=== PATIENT | male | born 1965 | race Caucasian/White ===

== ENCOUNTER 2020-03-10 18:26 | Emergency (ER) | payer OTHER ==
[~2020-03-10] VITALS: Ht 187 cm; Wt 105.0 kg
--- NOTE | 2020-03-10 18:40 | ED Upper Extremity ---
General Chief Complaint: Upper Extremity Stated Complaint: R HAND INJ / LAC Source: patient Exam Limitations: no limitations History of Present Illness Date Seen by Provider: Mar 10, 2020 Time Seen by Provider: 18:36 Initial Comments To ER per private vehicle with reports of right middle finger crush injury. He works for [employer], is from [place]. He got his middle finger cut between 2 metal shelves. Unknown last tetanus vaccine date. Onset: just prior to arrival Severity: moderate Pain/Injury Location: right 3rd finger Method of Injury: direct blow Modifying Factors: Worse With Movement Allergies and Home Medications Allergies Coded Allergies: amoxicillin (Verified Allergy, Unknown, 03/10/20) codeine (Verified Allergy, Unknown, 03/10/20) Home Medications Aspirin 81 Mg Tab.chew, 81 MG PO DAILY, (Reported) Atorvastatin Calcium 10 Mg Tablet, 10 MG PO HS, (Reported) Omeprazole 40 Mg Capsule.dr, 40 MG PO DAILY, (Reported) Patient Home Medication List Home Medication List Reviewed: Yes Review of Systems Constitutional: see HPI EENTM: see HPI Respiratory: no symptoms reported Cardiovascular: no symptoms reported Genitourinary: no symptoms reported Musculoskeletal: no symptoms reported Skin: no symptoms reported Psychiatric/Neurological: No Symptoms Reported Past Fjzkwjv-Yidywj-Naefxw Hx Patient Social History Recent Foreign Travel: No Contact w/Someone Who Travel: No Physical Exam Vital Signs Vital Signs - First Documented 03/10/20 18:30 Temp 36.8 Pulse 100 Resp 14 B/P (MAP) 127/76 (93) Pulse Ox 97 O2 Delivery Room Air Capillary Refill : Height, Weight, BMI Height: '" Weight: lbs. oz. kg; BMI Method: General Appearance: WD/WN, no apparent distress Respiratory: no respiratory distress, no accessory muscle use Shoulder: normal inspection, non-tender Elbow/Forearm: normal inspection, non-tender Wrist: Yes normal inspection, Yes non-tender Hand: Right Procedures/Interventions Wound Location: Upper Extremities Wound Length (cm): 1 Wound's Depth, Shape: irregular, nail-avulsed Wound Explored: clean Irrigated w/ Saline (ccs): 50 Anesthesia: 1% Lidocaine Volume Anesthetic (ccs): 5 Suture: Prolene, Monocryl Suture Size: 5-0 Number of Sutures: 8 Layer Closure?: 1 Number Deep Layer Sutures: 0 There is a nail avulsion with nail bed laceration. The nail was removed the rest of the way as it was attached only by about a 2 or 3 mm segment of skin. The underlying nailbed had about a 1 cm irregular laceration which was closed with 5-0 Monocryl sutures simple interrupted 3 and then Dermabond. The tip of the p ad of the finger was closed with 3 simple interrupted sutures size 5-0 Prolene. The proximal nail fold was splinted opened using the foil from the Vicryl suture package using 2 simple interrupted sutures size 5-0 Prolene. He was then wrapped with nonadherent gauze and tube gauze. Progress/Results/Core Measures Results/Orders My Orders Orders - MAHOGANY WILKINS APRN Alprazolam Tablet (Xanax Tablet) (03/10/20 18:45) Dipht,Pertuss(Acell),Tet Adult (Boostrix (03/10/20 18:45) Rx-Hydrocodone/Apap 5-325 Mg (Rx-Vicodin (03/10/20 18:45) Hand, Right, 3 Views (03/10/20 18:35) Cephalexin Capsule (Keflex Capsule) (03/10/20 19:45) Medications Given in ED Current Medications Medications Dose Ordered Sig/Millie Route Start Time Stop Time Status Last Admin Dose Admin Acetaminophen/ Hydrocodone Bitart 1 ea Q4H PRN PO 03/10/20 18:45 03/10/20 19:00 1 EA Alprazolam 0.5 mg ONCE ONCE PO 03/10/20 18:45 03/10/20 18:46 DC 03/10/20 18:49 0.5 MG Diphtheria/ Tetanus/Acell Pertussis 0.5 ml ONCE ONCE IM 03/10/20 18:45 03/10/20 18:46 DC 03/10/20 18:50 0.5 ML Vital Signs/I&O 03/10/20 18:30 Temp 36.8 Pulse 100 Resp 14 B/P (MAP) 127/76 (93) Pulse Ox 97 O2 Delivery Room Air Departure Impression Primary Impression: Crush injury to finger Qualified Codes: S67.10XA - Crushing injury of unspecified finger(s), i nitial encounter Additional Impressions: Fingernail avulsion Qualified Codes: S61.309A - Unspecified open wound of unspecified finger with damage to nail, initial encounter Laceration of nail bed of finger Qualified Codes: S61.319A - Laceration without foreign body of unspecified finger with damage to nail, initial encounter Disposition: 01 HOME, SELF-CARE Condition: Stable Departure-Patient Inst. Decision time for Depature: 19:36 Referrals: NO,LOCAL PHYSICIAN (PCP/Family) Primary Care Physician Patient Instructions: Common Finger Injuries, Nail Avulsion Add. Discharge Instructions: 1. You may remove the big bulky dressing in about 48 hours, Saturday evening by simply pulling on it. If it is stuck because of blood to the underlying skin then simply soak it in some lukewarm water under the sink which will allow it to peel off more easily. Be very gentle. The 3 stitches on the tip of the finger as well as the 2 stitches holding the finger nail splint in place should be removed in 10 days, return to the emergency room to have this done. Take the antibiotics as directed, take the pain medication as directed. Do Your best not to mix this with the Ambien. Once you remove the finger dressing on Saturday and you can wrap this with just a plain Band-Aid and apply the splint for some added protection of the fingertip. Return to ER for any concerns in the meantime such as intolerable pain, fevers, redness. All discharge instructions reviewed with patient and/or family. Voiced understanding. Scripts Cephalexin (Keflex) 500 Mg Capsule 500 MG PO TID, #15 CAP Prov: MAHOGANY WILKINS APRN 03/10/20 MAHOGANY WILKINS APRN Mar 10, 2020 18:40
[2020-03-10] MEDS ORDERED: RX-HYDROCODONE/APAP 5/325 MG #4 TAB PK PO PRN (18:45)
[2020-03-10] MEDS ORDERED: TETANUS,DIPTH,PERTUSS P/F (BOOSTRIX) 0.5 ML VIAL IM ONE (18:45)
[2020-03-10] MEDS ORDERED: ALPRAZolam 0.25 MG (XANAX) TAB PO ONE (18:45)
--- NOTE | 2020-03-10 19:11 | Diagnostic Imaging Report ---
INDICATION: Right hand injury 3 views of the right hand show some soft tissue disruption of the tip of the distal right middle finger. There appears to be some cortical fracture of the tuft. IMPRESSION: Compound fracture of the tuft of the distal phalanx of the right middle finger involving the cortical tip. Dictated by: Dictated on workstation # [id number]
[2020-03-10] MEDS ORDERED: ZOLP10TA PO (19:30)
[2020-03-10] MEDS ORDERED: TEST1.252 TD (19:30)
[2020-03-10] MEDS ORDERED: OMEP40CA27 PO (19:30)
[2020-03-10] MEDS ORDERED: ASPI-999 PO (19:30)
[2020-03-10] MEDS ORDERED: ATOR10TA PO (19:30)
--- NOTE | 2020-03-10 19:31 | NUR ---
Report given to Kareem MENDEZ.
[2020-03-10] MEDS ORDERED: HYDR-3870 PO (19:39)
[2020-03-10] MEDS ORDERED: CEPH-507 PO (19:39)
[2020-03-10] MEDS ORDERED: CEPHALEXIN 250 MG (KEFLEX) CAP PO ONE (19:45)
[2020-03-10 19:51] VITALS: BP 125/71
--- OUTSIDE RECORDS SUMMARY | 2020-03-10 21:11 | XMS REPORT | Continuity of Care Document ---
Demographics Preferred Language Unknown Marital Status Unknown Jewish Affiliation Unknown Race Unknown Ethnic Group Unknown Author Organization Unknown Address Unknown Phone Unavailable Allergies There is no data. Medications There is no data. Problems There is no data. Procedures There is no data. Results There is no data. Encounters There is no data.
== END 2020-03-10 19:51 | disposition home or self-care (01) ==
LOC: ER 18:28
DX: S67.192A Crushing injury of right middle finger, initial encounter (principal); S61.312A Laceration without foreign body of right middle finger with damage to nail, initial encounter; Z79.82 Long term (current) use of aspirin; Z88.0 Allergy status to penicillin; Z88.5 Allergy status to narcotic agent; Z23 Encounter for immunization; W23.1XXA Caught, crushed, jammed, or pinched between stationary objects, initial encounter; Y92.59 Other trade areas as the place of occurrence of the external cause
CPT/HCPCS: 12011; 73130; 90715

== ENCOUNTER 2020-03-13 08:42 | Emergency (ER) | payer OTHER ==
[~2020-03-13] VITALS: Ht 182 cm; Wt 105.0 kg
[~2020-03-13 08:42] MED LIST: ASPI-999 PO; ATOR10TA PO; CEPH-507 PO; HYDR-3870 PO; OMEP40CA27 PO; TEST1.252 TD; ZOLP10TA PO
--- OUTSIDE RECORDS SUMMARY | 2020-03-13 08:47 | XMS REPORT | Continuity of Care Document ---
Author Organization Unknown Address Unknown Phone Unavailable Allergies There is no data. Medications There is no data. Problems There is no data. Procedures There is no data. Results There is no data. Encounters ACCT No. Visit Date/Time Discharge Status Pt. Type Provider Facility Loc./Unit Complaint [id number] 03/10/2020 18:28:00 020 19:51:00 DIS Emergency MAHOGANY WILKINS APRN Via [facility] ER R HAND INJ / LAC
[2020-03-13 09:15] VITALS: BP 132/84
== END 2020-03-13 09:17 | disposition home or self-care (01) ==
LOC: EDUNIT# 08:42 → ER 08:43
DX: S61.203D Unspecified open wound of left middle finger without damage to nail, subsequent encounter (principal); X58.XXXD Exposure to other specified factors, subsequent encounter

== ENCOUNTER 2020-03-17 22:30 | Emergency (ER) | payer OTHER ==
[~2020-03-17] VITALS: Ht 187 cm; Wt 105.0 kg
[2020-03-17 22:55] VITALS: BP 165/98
--- OUTSIDE RECORDS SUMMARY | 2020-03-18 00:23 | XMS REPORT | Continuity of Care Document ---
Author Organization Unknown Address Unknown Phone Unavailable Allergies Active Description Code Type Severity Reaction Onset Reported/Identified Relationship to Patient Clinical Status Yes amoxicillin [id number] Drug Aller gy Unknown N/A 03/10/2020 Yes codeine [id number] Drug Allergy Unknown N/A 03/10/2020 Medications There is no data. Problems Date Dx Coded Attending Type Code Diagnosis Diagnosed By 03/14/2020 MAHOGANY WILKINS APRN Ot M79.642 PAIN IN LEFT HAND 03/14/2020 MAHOGANY WILKINS APRN Ot S61.312A LACERATION W/O FB OF R MID FINGER W SANDIP 03/14/2020 MAHOGANY WILKINS APRN Ot S67.192A CRUSHING INJURY OF RIGHT MIDDLE FINGER, 03/14/2020 MAHOGANY WILKINS APRN Ot W23.1XXA CAUGHT, CRUSH, JAMMED, OR PINCHED BETW S 03/14/2020 MAHOGANY WILKINS APRN Ot Y92.[address] 03/14/2020 MAHOGANY WILKINS APRN Ot Z23 ENCOUNTER FOR IMMUNIZATION 03/14/2020 MAHOGANY WILKINS APRN Ot Z79.82 HALFWAY (CURRENT) USE OF ASPIRIN 03/14/2020 MAHOGANY WILKINS APRN Ot Z88 .0 ALLERGY STATUS TO PENICILLIN 03/14/2020 MAHOGANY WILKINS APRN Ot Z88 .5 ALLERGY STATUS TO NARCOTIC AGENT STATUS Procedures There is no data. Results There is no data. Encounters ACCT No. Visit Date/Time Discharge Status Pt. Type Provider Facility Loc./Unit Complaint [id number] 03/13/2020 08:43:00 020 09:17:00 DIS Emergency JANES FRANKLIN, NASIMA Tee Via [facility] ER WOULD CHECK - R MIDDLE FINGER [id number] 03/10/2020 18:28:00 020 19:51:00 DIS Outpatient MAHOGANY WILKINS APRN Via [facility] ER R HAND INJ / LAC
== END 2020-03-17 22:57 | disposition home or self-care (01) ==
LOC: EDUNIT# 22:30 → ER 22:31
DX: S61.209D Unspecified open wound of unspecified finger without damage to nail, subsequent encounter (principal); X58.XXXD Exposure to other specified factors, subsequent encounter
CPT/HCPCS: 99282

== ENCOUNTER 2020-03-21 08:21 | Emergency (ER) | payer OTHER ==
--- OUTSIDE RECORDS SUMMARY | 2020-03-21 09:07 | XMS REPORT | Continuity of Care Document ---
Author Organization Unknown Address Unknown Phone Unavailable Allergies Active Description Code Type Severity Reaction Onset Reported/Identified Relationship to Patient Clinical Status Yes amoxicillin [id number] Drug Aller gy Unknown N/A 03/10/2020 Yes codeine [id number] Drug Allergy Unknown N/A 03/10/2020 Medications There [...] S 03/14/2020 MAHOGANY WILKINS APRN Ot Y92.59 [facility] 03/14/2020 MAHOGANY WILKINS APRN Ot Z23 ENCOUNTER FOR IMMUNIZATION 03/14/2020 MAHOGANY WILKINS APRN Ot Z79.82 ALF (CURRENT) USE OF ASPIRIN 03/14/2020 MAHOGANY WILKINS APRN Ot Z88 .0 ALLERGY STATUS TO PENICILLIN 03/14/2020 MAHOGANY WILKINS APRN Ot Z88 .5 ALLERGY STATUS TO NARCOTIC AGENT STATUS 03/17/2020 MAHOGANY WILKINS APRN Ot M79.642 PAIN IN LEFT HAND 03/17/2020 MAHOGANY WILKINS APRN Ot S61.312A LACERATION W/O FB OF R MID FINGER W SANDIP 03/17/2020 MAHOGANY WILKINS APRN Ot S67.192A CRUSHING INJURY OF RIGHT MIDDLE FINGER, 03/17/2020 MAHOGANY WILKINS APRN Ot W23.1XXA CAUGHT, CRUSH, JAMMED, OR PINCHED BETW S 03/17/2020 MAHOGANY WILKINS APRN Ot Y92.59 [facility] TR[facility] ARE[facility] 03/17/2020 MAHOGANY WILKINS APRN Ot Z23 ENCOUNTER FOR IMMUNIZATION 03/17/2020 MAHOGANY WILKINS APRN Ot Z79.82 ALF (CURRENT) USE OF ASPIRIN 03/17/2020 MAHOGANY WILKINS APRN Ot Z88 .0 ALLERGY STATUS TO PENICILLIN 03/17/2020 MAHOGANY WILKINS APRN Ot Z88 .5 ALLERGY STATUS TO NARCOTIC AGENT STATUS Procedures There is no data. Results There is no data. Encounters ACCT No. Visit Date/Time Discharge Status Pt. Type Provider Facility Loc./Unit Complaint [id number] 03/17/2020 22:31:00 020 22:57:00 DIS Emergency STEPAN MCCLENDON DO [facility] ER WOUND CHECK [id number] 03/13/2020 08:43:00 020 09:17:00 DIS Emergency NASIMA MARRERO MD Via [facility] ER WOULD CHECK - R MIDDLE FINGER [id number] 03/10/2020 18:28:00 020 19:51:00 DIS Outpatient MAHOGANY WILKINS APRN Via [facility] ER R HAND INJ / LAC
== END 2020-03-21 09:10 | disposition left against medical advice (07) ==
LOC: EDUNIT# 08:21 → ER 08:22
DX: Z48.02 Encounter for removal of sutures (principal)

== ENCOUNTER 2020-03-22 14:07 | Emergency (ER) | payer OTHER ==
[2020-03-22 14:44] VITALS: BP 127/72
--- OUTSIDE RECORDS SUMMARY | 2020-03-22 16:41 | XMS REPORT | Continuity of Care Document ---
Author Organization Unknown Address Unknown Phone Unavailable Allergies Active Description Code Type Severity Reaction Onset Reported/Identified Relationship to Patient Clinical Status Yes amoxicillin [id number] Drug Aller gy Unknown N/A 03/10/2020 Yes codeine [id number] Drug Allergy Unknown N/A 03/10/2020 Medications There [...] S 03/14/2020 MAHOGANY WILKINS APRN Ot Y92.59 [facility] TRADE ARE[facility] 03/14/2020 MAHOGANY WILKINS APRN Ot Z23 ENCOUNTER FOR IMMUNIZATION 03/14/2020 MAHOGANY WILKINS APRN Ot Z79.82 [facility] (CURRENT) USE OF ASPIRIN 03/14/2020 MAHOGANY WILKINS [...] S 03/17/2020 MAHOGANY WILKINS APRN Ot Y92.59 [facility] TRADE ARE[facility] 03/17/2020 MAHOGANY WILKINS APRN Ot Z23 ENCOUNTER FOR IMMUNIZATION 03/17/2020 MAHOGANY WILKINS APRN Ot Z79.82 [facility] (CURRENT) USE OF ASPIRIN 03/17/2020 MAHOGANY WILKINS APRN Ot Z88 .0 ALLERGY STATUS TO PENICILLIN 03/17/2020 MAHOGANY WILKINS APRN Ot Z88 .5 ALLERGY STATUS TO NARCOTIC AGENT STATUS 03/21/2020 STEPAN MCCLENDON DO Ot S61.209 D UNSP OPEN WOUND OF UNSP FINGER W/O DAMAG 03/21/2020 STEPAN MCCLENDON DO Ot X58.XXX D EXPOSURE TO OTHER SPECIFIED FACTORS, SUB Procedures There is no data. Results There is no data. Encounters ACCT No. Visit Date/Time Discharge Status Pt. Type Provider Facility Loc./Unit Complaint [id number] 03/21/2020 08:22:00 020 09:10:00 DIS Emergency RAYRAY FRANKLIN, JOHNY Moore Via [facility] ER STITCH REMOVAL [id number] 03/17/2020 22:31:00 020 22:57:00 DIS Outpatient [place] STEPAN SIEGEL [facility] ER WOUND CHECK [id number] 03/13/2020 08:43:00 020 09:17:00 DIS Emergency NASIMA MARRERO MD Via [facility] ER WOULD CHECK - R MIDDLE FINGER [id number] 03/10/2020 18:28:00 020 19:51:00 DIS Outpatient MAHOGANY WILKINS APRN Via [facility] ER R HAND INJ / LAC
== END 2020-03-22 15:04 | disposition home or self-care (01) ==
LOC: EDUNIT# 14:07 → ER 14:09
DX: S61.212D Laceration without foreign body of right middle finger without damage to nail, subsequent encounter (principal); X58.XXXD Exposure to other specified factors, subsequent encounter
CPT/HCPCS: 99281

== ENCOUNTER 2020-03-29 00:38 | Emergency (ER) | payer BC, OTHER ==
[~2020-03-29] VITALS: Ht 188 cm; Wt 90.7 kg
--- OUTSIDE RECORDS SUMMARY | 2020-03-29 00:45 | XMS REPORT | Continuity of Care Document ---
Author Organization Unknown Address Unknown Phone Unavailable Allergies Active Description Code Type Severity Reaction Onset Reported/Identified Relationship to Patient Clinical Status Yes amoxicillin [id number] Drug Aller gy Unknown N/A 03/10/2020 Yes codeine [id number] Drug Allergy Unknown N/A 03/10/2020 Medications There [...] S 03/14/2020 MAHOGANY WILKINS APRN Ot Y92.[address] [facility] [address] 03/14/2020 MAHOGANY WILKINS APRN Ot Z23 ENCOUNTER FOR IMMUNIZATION 03/14/2020 MAHOGANY WILKINS APRN Ot Z79.82 [facility] (CURRENT) USE OF ASPIRIN 03/14/2020 MAHOGANY WILKINS [...] S 03/17/2020 MAHOGANY WILKINS APRN Ot Y92.59 [facility] [address] 03/17/2020 MAHOGANY WILKINS APRN Ot Z23 ENCOUNTER FOR IMMUNIZATION 03/17/2020 MAHOGANY WILKINS APRN Ot Z79.82 [facility] (CURRENT) USE OF ASPIRIN 03/17/2020 MAHOGANY WILKINS APRN Ot Z88 .0 ALLERGY STATUS TO PENICILLIN 03/17/2020 MAHOGANY WILKINS APRN Ot Z88 .5 ALLERGY STATUS TO NARCOTIC AGENT STATUS 03/21/2020 STEPAN MCCLENDON DO Ot S61.209 D UNSP OPEN WOUND OF UNSP FINGER W/O DAMAG 03/21/2020 [facility] STEPAN SIEGEL Ot X58.XXX D EXPOSURE TO OTHER SPECIFIED FACTORS, SUB 03/24/2020 RAYRAY FRANKLIN, JOHNY Moore Ot Z48. 02 ENCOUNTER FOR REMOVAL OF SUTURES 03/25/2020 DANELLE STEPAN SIEGEL Ot S61.212 D LACERATION W/O FB OF R MID FINGER W/O DA [facility] EXPOSURE TO OTHER SPECIFIED FACTORS, SUB Procedures There is no data. Results There is no data. Encounters ACCT No. Visit Date/Time Discharge Status Pt. Type Provider Facility Loc./Unit Complaint [id number] 03/22/2020 14:09:00 020 15:04:00 DIS Outpatient STEPAN MCCLENDON DO [facility] ER STITCH REMOVAL [id number] 03/21/2020 08:22:00 09:10:00 DIS Outpatient JOHNY SEO MD Via [facility] ER STITCH REMOVAL [id number] 03/17/2020 22:31:00 22:57:00 DIS Outpatient STEPAN MCCLENDON DO, [facility] ER WOUND CHECK [id number] 03/13/2020 08:43:00 09:17:00 DIS Emergency NASIMA MARRERO MD Via [facility] ER WOULD CHECK - R MIDDLE FINGER [id number] 03/10/2020 18:28:00 19:51:00 DIS Outpatient MAHOGANY WILKINS APRN Via [facility] ER R HAND INJ / LAC
--- NOTE | 2020-03-29 01:29 | ED Lower Extremity ---
General Chief Complaint: Lower Extremity Stated Complaint: RT KNEE & GROIN PAIN Nursing Triage Note: right medial knee pain radiating to right groin, denies injury. to treatment. Nursing Sepsis Screen: No Definite Risk Source: patient History of Present Illness Date Seen by Provider: Mar 29, 2020 Time Seen by Provider: 01:12 Initial Comments PT ARRIVES VIA POV C/O RIGHT KNEE PAIN HAS CHRONIC PROBLEMS WITH BOTH KNEES, AND HAS HAD OPEN KNEE SURGERIES ON BOTH KNEES YEARS AGO . RIGHT KNEE HAS BEEN HURTING FOR THE LAST 2-3 DAYS, AND TONIGHT AT WORK ( [employer]) HE PICKED SOMETHING UP AND TURNED AND HAD SEVERE PAIN IN HIS RIGHT KNEE--"IT BROUGHT ME TO THE GROUND" "PAIN BAD A KIDNEY STONE" STATES HE HASN'T BEEN ABLE TO SLEEP FOR THE LAST 3 NIGHTS DUE TO KNEE CARDENAS HAS NOT TAKEN ANYTHING FOR PAIN AT ANY TIME. STATES "THE EPICENTER OF THE PAIN IS MEDIAL" "AND IT RADIATES UP AND DOWN, BUT PREDOMINANTLY RADIATES UPWARD AND MORE UP INTO MY GROIN" NO DIRECT TRAUMA OR FALL, ETC. NO PARESTHESIAS OR MOTOR DEFICITS. NO SWELLING TO KNEE. PT SEEN HERE 03/10/20 FOR INJURY TO RIGHT MIDDLE FINGER, WHICH OCCURRED AT WORK. RECEIVED RX FOR HYDROCODONE AT THAT TIME WAS SEEN HERE AN ADDITIONAL 4 OTHER VISITS FOR THAT INJURY, UNTIL SUTURES WERE REMOVED ON 03/22/20 PCP--PT IS HERE FOR WORK--LIVES IN [place] Allergies and Home Medications Allergies Coded Allergies: amoxicillin (Verified Allergy, Unknown, 03/10/20) codeine (Verified Allergy, Unknown, 03/10/20) Home Medications Aspirin 81 Mg Tab.chew, 81 MG PO DAILY, (Reported) Atorvastatin Calcium 10 Mg Tablet, 10 MG PO HS, (Reported) Cephalexin 500 Mg Capsule, 500 MG PO TID Prescribed by: MAHOGANY WILKINS on 03/10/201938 Hydrocodone/Acetaminophen 1 Each Tablet, 1 EACH PO Q4-6HR PRN for PAIN-MODERATE Prescribed by: MAHOGANY WILKINS on 03/10/201939 Meloxicam 15 Mg Tablet, 15 MG PO DAILY Prescribed by: STEPAN MCCLENDON on 03/29/20 0156 Omeprazole 40 Mg Capsule.dr, 40 MG PO DAILY, (Reported) Patient Home Medication List Home Medication List Reviewed: Yes Review of Systems Constitutional: no symptoms reported EENTM: no symptoms reported Respiratory: no symptoms reported Cardiovascular: no symptoms reported Gastrointestinal: no symptoms reported Genitourinary: no symptoms reported Musculoskeletal: see HPI Skin: no symptoms reported Psychiatric/Neurological: No Symptoms Reported Past Zkpvgur-Sqaqkv-Xeepwl Hx Past Med/Social Hx: Reviewed and Corrections made Patient Social History Alcohol Use: Occasionally Uses Recreational Drug Use: No Smoking Status: Never a Smoker 2nd Hand Smoke Exposure: No Recent Foreign Travel: No Contact w/Someone Who Travel: No Recent Infectious Disease Expo: No Recent Hopitalizations: No Physical Abuse: No Sexual Abuse: No Mistreated: No Fear: No Immunizations Up To Date Tetanus Booster (TDap): Unknown Seasonal Allergies Seasonal Allergies: No Past Medical History Surgeries: Yes (BILAT OPEN KNEE REPAIRS; R SHOULDER; CARDIAC CATH;HERNIA) Abdominal, Cardiac, Orthopedic Respiratory: No Cardiac: Yes High Cholesterol Neurological: No Genitourinary: Yes Kidney Stones Gastrointestinal: Yes Gastroesophageal Reflux Musculoskeletal: Yes (CHRONIC KNEE PROBLEMS) Arthritis Endocrine: No HEENT: No Cancer: No Psychosocial: Yes Sleep Difficulties Integumentary: No Blood Disorders: No Physical Exam Vital Signs Vital Signs - First Documented 03/29/20 00:46 Temp 36.7 Pulse 88 Resp 18 B/P (MAP) 141/76 (97) Pulse Ox 98 O2 Delivery Room Air Capillary Refill : Less Than 3 Seconds Height, Weight, BMI Height: '" Weight: lbs. oz. kg; 25.00 BMI Method:Estimated General Appearance: WD/WN, no apparent distress Hips: bilateral hip normal inspection Legs: bilateral leg normal inspection Knees: left knee normal inspection; right knee bone tenderness (MEDIAL ASPECT OF RIGHT KNEE), right knee other (NO EXTERNAL EVIDENCE OF TRAUMA, NO SWELLING. NO DEFORMITY. DISTAL MOTOR/SENSORY/VASCULAR INTACT. ) Ankles: bilateral ankle normal inspection Feet: bilateral foot normal inspection Neurologic/Tendon: normal sensation, normal motor functions, normal tendon functions Neurologic/Psychiatric: orthopedic coder II-XII nml as tested, no motor/sensory deficits, alert, normal mood/affect, oriented x 3 Skin: normal color Procedures/Interventions Suture Size: 5-0 Splinting and Joint Reduction : Rosalino wrap: Yes Immobilizers: 24 inch Knee Ordered: Crutches Progress/Results/Core Measures Results/Orders My Orders Orders - STEPAN MCCLENDON DO Knee, Right, 3 Views (03/29/20 01:21) Rosalino Bandage (03/29/20 01:56) Crutches (03/29/20 01:56) Knee Immobilizer (03/29/20 01:56) Rx-Naproxen (Rx-Naprosyn) (03/29/20 01:59) Vital Signs/I&O 03/29/20 03/29/20 00:46 02:04 Temp 36.7 36.5 Pulse 88 88 Resp 18 16 B/P (MAP) 141/76 (97) 139/75 (97) Pulse Ox 98 99 O2 Delivery Room Air Room Air Blood Pressure Mean: 97 Diagnostic Imaging Comments XRAYS RIGHT KNEE--NO ACUTE PROCESS, HARDWARE IN PLACE, PENDING RADIOLOGIST REVIEW Reviewed: Reviewed by Me Departure Impression Primary Impression: Right knee pain Disposition: HOME, SELF-CARE Condition: Stable Departure-Patient Inst. Referrals: NO,LOCAL PHYSICIAN (PCP) Primary Care Physician NEGIN AMAYA MD Patient Instructions: Going Up and Down Curbs or Stairs With a Walker or Crutches, How to Use Crutches, Knee Immobilizer (DC), Knee Pain (DC) Add. Discharge Instructions: ROSALINO WRAP, KNEE IMMOBILIZER AND CRUTCHES AT ALL TIMES ELEVATE LEG MUCH POSSIBLE ICE TO AREA AT 20 MINUTE INTERVALS FOLLOW UP WITH DR. AMAYA, ORTHOPEDIC SURGEON, FOR FURTHER CARE All discharge instructions reviewed with patient and/or family. Voiced understanding. Scripts Meloxicam (Mobic) 15 Mg Tablet 15 MG PO DAILY, #10 TAB Prov: STEPAN MCCLENDON DO 03/29/20 Work/School Note: Work Release Form Date Seen in the Emergency Department: Mar 29, 2020 Restrictions: Need Release from Doctor STEPAN MCCLENDON DO Mar 29, 2020 01:29
[2020-03-29] MEDS ORDERED: MELO15TA14 PO (01:56)
[2020-03-29] MEDS ORDERED: RX-NAPROXEN (NAPROSYN) 250 MG TAB PPK#4 PO STA (01:59)
[2020-03-29 02:04] VITALS: BP 139/75
--- NOTE | 2020-03-29 08:02 | Diagnostic Imaging Report ---
Clinical indications: Patient right medial knee pain radiating to right groin. No recent injury but states pain is causing him to loose sleep. EXAM: X-ray of the right knee, 3 views. COMPARISON: None. FINDINGS: There is no acute fracture or dislocation. There is side plate and screws internally fixing the proximal medial tibial region which appears healed. There are moderately hypertrophic spurs involving the patellofemoral compartment and medial compartment. There are small spurs involving the lateral compartment. There is no knee effusion. IMPRESSION: 1: There is no acute fracture or dislocation. 2: Postop changes to the proximal tibia with no gross complication. 3: Degenerative disease of the right knee. Dictated by: Dictated on workstation # [id number]
== END 2020-03-29 02:04 | disposition home or self-care (01) ==
LOC: EDUNIT# 00:38 → ER 00:40
DX: M25.561 Pain in right knee (principal); E78.00 Pure hypercholesterolemia, unspecified; K21.9 Gastro-esophageal reflux disease without esophagitis; Z98.890 Other specified postprocedural states; Z87.828 Personal history of other (healed) physical injury and trauma; Z88.0 Allergy status to penicillin; Z88.5 Allergy status to narcotic agent; Z79.82 Long term (current) use of aspirin; Z95.9 Presence of cardiac and vascular implant and graft, unspecified
CPT/HCPCS: 73562; 99283; L1830

== ENCOUNTER 2023-01-01 19:21 | Emergency (ER) | payer BC ==
[~2023-01-01] VITALS: Ht 188 cm; Wt 108.0 kg
[~2023-01-01 19:21] MED LIST changes: +MELO15TA14 PO; -OMEP40CA27 PO; +OMEP40CA6 PO
[2023-01-01] MEDS ORDERED: ZOLPIDEM (19:37)
[2023-01-01] MEDS ORDERED: TADA20TA43 (19:37)
[2023-01-01] MEDS ORDERED: CNC1KV (19:37)
[2023-01-01] MEDS ORDERED: TAMSULOSIN (19:37)
--- NOTE | 2023-01-01 19:41 | ED GU-Male ---
General Chief Complaint: - Reproductive Stated Complaint: PROLONGED ERECTION Source: patient History of Present Illness Date Seen by Provider: Jan 01, 2023 Time Seen by Provider: 19:30 Initial Comments PT ARRIVES VIA POV PT STATES HE HAS HAD A PERSISTENT ERECTION SINCE WAKING AT 0830 THIS AM IT WAS NOT PRESENT WHEN HE WENT TO SLEEP LAST NIGHT. HE HAS SOME DISCOMFORT IN HIS PENIS, BUT IS ABLE TO URINATE WITHOUT DIFFICULTY HE HAS NO TESTICULAR PAIN, NO ABDOMINAL PAIN OR BACK PAIN HE HAS HISTORY OF ELEVATED PSA, AND HAS BEEN PRESCRIBED FLOMAX AND CIALIS DAILY--TAKES CIALIS AT BEDTIME. HE DOES NOT HAVE A HISTORY OF THIS PROBLEM. HE HAS A HISTORY OF KIDNEY STONES, BUT NO RECENT PROBLEMS PT DOES NOT HAVE HISTORY OF HTN, CAD, PVD OR DIABETES HE HAD A CARDIAC CATH 1 MONTH AGO--NO SIGNIFICANT DISEASE, AND NO INTERVENTION PER PT. PT DOES HAVE HYPERLIPIDEMIA AND TAKES LIPITOR AND ASPIRIN. HE DOES NOT SMOKE, OCCASIONALLY DRINKS ALCOHOL AND DENIES DRUG USE PT LIVES IN [place] AND IS HERE TRAVELING, IS GOING BACK HOME TOMORROW HE WAS SEEING A UROLOGIST WHEN HE LIVED IN [place], BUT HAS NOT SEEN ONE SINCE HE MOVED TO [place] Allergies and Home Medications Allergies Coded Allergies: amoxicillin (Verified Allergy, Unknown, 03/10/20) codeine (Verified Allergy, Unknown, 03/10/20) Patient Home Medication List Home Medication List Reviewed: Yes Aspirin (Aspirin) 81 Mg Tab.chew, 81 MG PO DAILY, (Reported) Entered as Reported by: ANDIE ECHEVERRIA on 03/10/201929 Atorvastatin Calcium (Lipitor) 10 Mg Tablet, 10 MG PO HS, (Reported) Entered as Reported by: ANDIE ECHEVERRIA on 03/10/201929 Cyanocobalamin (Cyanocobalamin Injection) 1,000 Mcg/Ml Inj, (Reported) Entered as Reported by: VICK MELARA on 01/01/231936 Last Action: New Order Tadalafil (Tadalafil) 20 Mg Tablet, (Reported) Entered as Reported by: VICK MELARA on 01/01/231936 Last Action: New Order [Tamsulosin] , (Reported) Entered as Reported by: VICK MELARA on 01/01/231936 Last Action: New Order [Zolpidem] , (Reported) Entered as Reported by: VICK MELARA on 01/01/231936 Last Action: New Order Discontinued Medications Cephalexin (Keflex) 500 Mg Capsule, 500 MG PO TID Discontinued Reason: No Longer Taking Prescribed by: MAHOGANY WILKINS on 03/10/201938 Last Action: Discontinued Hydrocodone/Acetaminophen (Lorcet 5-325 mg Tablet) 1 Each Tablet, 1 EACH PO Q4- 6HR PRN for PAIN-MODERATE Discontinued Reason: No Longer Taking Prescribed by: MAHOGANY WILKINS on 03/10/201939 Last Action: Discontinued Meloxicam (Mobic) 15 Mg Tablet, 15 MG PO DAILY Discontinued Reason: No Longer Taking Prescribed by: STEPAN MCCLENDON on 03/29/20 0156 Last Action: Discontinued Omeprazole (Omeprazole) 40 Mg Capsule.dr, 40 MG PO DAILY, (Reported) Discontinued Reason: No Longer Taking Entered as Reported by: ANDIE ECHEVERRIA on 03/10/201929 Last Action: Discontinued Testosterone (Androgel) 1.25 Gm Gel.packet, 1.25 GM TD, (Reported) Discontinued Reason: No Longer Taking Entered as Reported by: ANDIE ECHEVERRIA on 03/10/201929 Last Action: Discontinued Zolpidem Tartrate (Ambien) 10 Mg Tablet, 10 MG PO, (Reported) Discontinued Reason: No Longer Taking Entered as Reported by: ANDIE ECHEVERRIA on 03/10/201929 Last Action: Discontinued Review of Systems Review of Systems Constitutional: no symptoms reported Gastrointestinal: no symptoms reported Genitourinary: see HPI Musculoskeletal: no symptoms reported Skin: no symptoms reported Past Gpvywbu-Uphtny-Yvsebw Hx Patient Social History Tobacco Use?: No Substance use?: No Alcohol Use?: Yes Alcohol Frequency: Once in a while Immunizations Up To Date Tetanus Booster (TDap): Unknown Seasonal Allergies Seasonal Allergies: No Past Medical History Surgeries: Yes (BILAT OPEN KNEE REPAIRS; R SHOULDER; CARDIAC CATH;HERNIA) Abdominal, Cardiac, Orthopedic Respiratory: No Cardiac: Yes High Cholesterol Neurological: No Genitourinary: Yes (ELEVATED PSA) Kidney Stones Gastrointestinal: Yes Gastroesophageal Reflux Musculoskeletal: Yes (CHRONIC KNEE PROBLEMS) Arthritis Endocrine: No HEENT: No Cancer: No Psychosocial: Yes Sleep Difficulties Integumentary: No Blood Disorders: No Family Medical History ADDITIONAL HISTORY: -CARDIAC CATH IN [place], NO SIGIFICANT DISEASE, AND NO INTERVENTION PER PT ON 01/01/23 Physical Exam Vital Signs Vital Signs - First Documented 01/01/23 19:28 Temp 36.7 Pulse 78 Resp 16 B/P (MAP) 180/107 (131) Pulse Ox 97 O2 Delivery Room Air Capillary Refill : Height, Weight, BMI Height: '" Weight: lbs. oz. kg; 25.00 BMI Method:Estimated General Appearance: WD/WN, no apparent distress, other (ANXIOUS) Cardiovascular: regular rate, rhythm Respiratory: normal breath sounds Gastrointestinal: non tender, soft Male: No inguinal tenderness, No testicular tenderness; other (PENIS IS ERECT, BUT NO SIGNS OF ISCHEMIC CHANGES--OVERLYING SKIN IS A NORMAL COLOR. NO SIGNS OF TRAUMA TO AREA. NO SIGNS OF INFECTION TO THE AREA. INGUINAL CANALS ARE NORMAL. SCROTUM AND TESTES ARE NORMAL. NO SORES OR LESIONS NOTED TO THE AREA. ) Back: no CVA tenderness Extremities: normal inspection Neurologic/Psychiatric: no motor/sensory deficits, alert, oriented x 3 Skin: normal color, warm/dry; No rash Procedures/Interventions Suture Size: 5-0 Progress AREA NEAR BASE OF PENIS WAS CLEANSED WITH BETADINE, PREPPED WITH STERILE DRAPES USING STERILE TECHNIQUE THROUGHOUT THE PROCEDURE SKIN WAS ANESTHETIZED WITH 1% LIDOCAINE PLAIN A #18 G NEEDLE WAS PLACED NEAR BASE OF PENIS AT THE 2:00-3:00 POSITION OF THE CORPORA CAVERNOSUS AND ABLE TO ASPIRATE 130-140 ML OF DARK BLOOD FROM THE AREA, WITH NEAR-COMPLETE RESOLUTION. ICE PACK WAS PLACED AT THE SITE. PT WAS OBSERVED IN ER FOR RECURRENCE. 2114--HE IS ABLE TO URINATE WITHOUT DIFFICULTY OR PAIN, AND NO GROSS HEMATURIA NOTED. COMPLETE RESOLUTION WAS NOTED AFTER 1 HOUR, AND NO RECURRENCE. PT IS SYMPTOMATICALLY SIGNIFICANTLY IMPROVED Progress/Results/Core Measures Suspected Sepsis SIRS Temperature: Pulse: Respiratory Rate: Blood Pressure / Mean: Results/Orders Lab Results Laboratory Tests Test 01/01/23 19:40 Range/Units Urine Color YELLOW Urine Clarity CLEAR Urine pH 7.0 5-9 Urine Specific [place] <=1.005 1.016-1.022 Urine Protein NEGATIVE NEGATIVE Urine Glucose (UA) NEGATIVE NEGATIVE Urine Ketones NEGATIVE NEGATIVE Urine Nitrite NEGATIVE NEGATIVE Urine Bilirubin NEGATIVE NEGATIVE Urine Urobilinogen 0.2 < = 1.0 MG/DL Urine Leukocyte Esterase NEGATIVE NEGATIVE Urine RBC (Auto) TRACE-I H NEGATIVE Urine RBC NONE /HPF Urine WBC NONE /HPF Urine Squamous Epithelial Cells NONE /HPF Urine Crystals NONE /LPF Urine Bacteria NEGATIVE /HPF Urine Casts NONE /LPF Urine Mucus NEGATIVE /LPF Urine Culture Indicated NO Urine Opiates Screen NEGATIVE NEGATIVE Urine Oxycodone Screen NEGATIVE NEGATIVE Urine Methadone Screen NEGATIVE NEGATIVE Urine Propoxyphene Screen NEGATIVE NEGATIVE Urine Barbiturates Screen NEGATIVE NEGATIVE Ur Tricyclic Antidepressants Screen NEGATIVE NEGATIVE Urine Phencyclidine Screen NEGATIVE NEGATIVE Urine Amphetamines Screen NEGATIVE NEGATIVE Urine Methamphetamines Screen NEGATIVE NEGATIVE Urine Benzodiazepines Screen NEGATIVE NEGATIVE Urine Cocaine Screen NEGATIVE NEGATIVE Urine Cannabinoids Screen NEGATIVE NEGATIVE My Orders Orders - STEPAN MCCLENDON DO Drug Screen Stat (Urine) (01/01/23 19:35) Ua Culture If Indicated (01/01/23 19:35) Lidocaine 1% Inj 10 Ml (Xylocaine 1% Inj (01/01/23 20:01) Acetaminophen Tablet (Tylenol Tablet) (01/01/23 21:00) Rx-Tramadol Hcl (Rx-Ultram) (01/01/23 21:54) Wound Dressing-Ed (01/01/23 21:54) Medications Given in ED Current Medications Medications Dose Ordered Sig/Millie Route Start Time Stop Time Status Last Admin Dose Admin Acetaminophen 1,000 mg ONCE ONCE PO 01/01/23 21:00 01/01/23 21:01 DC 01/01/23 20:53 1,000 MG Lidocaine HCl 10 ml STK-MED ONCE .ROUTE 01/01/23 20:01 01/01/23 20:04 DC 01/01/23 20:05 10 ML Vital Signs/I&O 01/01/23 01/01/23 01/01/23 19:28 19:52 22:03 Temp 36.7 36.4 Pulse 78 71 73 Resp 16 16 B/P (MAP) 180/107 (131) 168/71 (103) 167/99 Pulse Ox 97 96 O2 Delivery Room Air Room Air Capillary Refill : Progress Note : Progress Note DISCUSSED ANTICIPATED COURSE, SYMPTOMATIC TREATMENT, NEED FOR FOLLOW UP AND RETURN PRECAUTIONS PT STATES HE WILL BE DRIVING BACK HOME TO [place] IN THE MORNING. HE STATES HE WILL BE CONTACTING HIS UROLOGIST IN [place] IN THE MORNING AND FOLLOWING UP WITH HIM ON HIS WAY BACK HOME. Departure Communication (Admissions) 1949--CALLED [facility] 1954--SPOKE WITH UROLOGIST, DR. CHOWDHURY, HE ADVISES ASPIRATION, AND IF UNSUCCESSFUL, HE ADVISES TRANSFER TO , THEY DO NOT HAVE THE ABILITY FOR MORE ADVANCED TREATMENT OF THIS PROBLEM SUCH [employer], THERE AT [place]. Impression Primary Impression: Priapism Disposition: 01 HOME, SELF-CARE Condition: Improved Departure-Patient Inst. Decision time for Depature: 21:55 Referrals: NO,LOCAL PHYSICIAN (PCP/Family) Primary Care Physician Patient Instructions: Priapism Add. Discharge Instructions: CLEAN AREA TWICE A DAY WITH ANTIBACTERIAL SOAP AND WATER, APPLY GAUZE DRESSING TO THE AREA ICE PACKS TO AREA AT 20 MINUTE INTERVALS FOR THE NEXT 24 HOURS TO REDUCE BRUISING HOLD YOUR ASPIRIN AND ANY MOTRIN/ADVIL OR ALEVE/NAPROXEN FOR THE NEXT 24 HOURS YOU MAY TAKE TYLENOL 1 GRAM EVERY 6 HOURS NEEDED FOR PAIN HOLD YOUR CIALIS UNTIL YOU ARE RECHECKED AND CLEARED BY . YOU WILL NEED TO FOLLOW UP WITH UROLOGY OR WITH YOUR FAMILY THIS WEEK FOR RECHECK GO TO NEAREST EMERGENCY ROOM IF THE CONDITION RETURNS, AND LASTS FOR MORE THAN 4 HOURS. All discharge instructions reviewed with patient and/or family. Voiced understanding. STEPAN MCCLENDON DO Jan 01, 2023 19:41
[2023-01-01 19:52] LABS: BILIRUBIN,URINE NEGATIVE (NEGATIVE); CLARITY,URINE CLEAR; COLOR,URINE YELLOW; GLUCOSE, URINE (UA) NEGATIVE (NEGATIVE); KETONES,URINE NEGATIVE (NEGATIVE); LEUKOCYTE ESTERASE ,URINE NEGATIVE (NEGATIVE); NITRITE,URINE NEGATIVE (NEGATIVE); PROTEIN,URINE NEGATIVE (NEGATIVE)
[2023-01-01] MEDS ORDERED: LIDOCAINE 1% INJ 10 ML VIAL ONE (20:01)
[2023-01-01 20:03] LABS: BACTERIA,URINE NEGATIVE /HPF
[2023-01-01 20:13] LABS: AMPHETAMINE SCREEN, URINE NEGATIVE (NEGATIVE); BARBITURATE SCREEN URINE NEGATIVE (NEGATIVE); BENZODIAZEPINES SCREEN URINE NEGATIVE (NEGATIVE); CANNABINOID SCREEN, URINE NEGATIVE (NEGATIVE); COCAINE SCREEN URINE NEGATIVE (NEGATIVE); METHADONE STAT NEGATIVE (NEGATIVE); OPIATE SCREEN URINE NEGATIVE (NEGATIVE); OXYCODONE STAT NEGATIVE (NEGATIVE); PROPOXYPHENE STAT NEGATIVE (NEGATIVE); TRICYCLIC ANTIDEPRESSANTS SCRE NEGATIVE (NEGATIVE)
[2023-01-01] MEDS ORDERED: ACETAMINOPHEN 500 MG TAB (TYLENOL) PO ONE (21:00)
[2023-01-01 22:03] VITALS: BP 167/99
== END 2023-01-01 22:05 | disposition home or self-care (01) ==
LOC: EDUNIT# 19:21 → ER 19:23
DX: N48.30 Priapism, unspecified (principal); E78.5 Hyperlipidemia, unspecified; Z79.82 Long term (current) use of aspirin
CPT/HCPCS: 80306; 81000; 99284